=== PATIENT | male | born 1980 | race Caucasian/White ===

== ENCOUNTER 2018-03-03 12:43 | Outpatient (CLI) | payer BC ==
--- NOTE | 2018-03-03 16:20 | CT ---
LUMBAR SPINE CT WITHOUT CONTRAST: HISTORY: Lumbar radiculopathy. Fracture 1 year ago. Possible disk bulge. COMPARISON: None. TECHNIQUE: CT lumbar spine is performed without contrast administration. Multisequential, multiplanar imaging i s performed. FINDINGS: Lumbar spine vertebral body height is maintained. There is no vertebral body fracture. There is 3 m m of anterolisthesis of L5 upon S1. There are associated bilateral pars defects. Vacuum disk phenom enon at L5-S1. No retroperitoneal mass, lymphadenopathy, or hematoma. Visualized solid organs are unremarkable. T11-T12 and T12-L1: No significant central canal stenosis or foraminal narrowing. L1-L2: No significant central canal stenosis. Foramina are patent. L2-L3: No significant central canal stenosis. Neural foramina are patent. L3-L4: No significant central canal stenosis. Foramina are patent. L4-L5: Moderate loss of disk space height. There is a generalized disk bulge with a left subarticul ar component. There is presumed mass effect and partial obscuration of traversing left L5 nerve root . Overall, there is mild central canal stenosis. Mild right and mild to moderate left foraminal pennie rowing. L5-S1: Vacuum disk phenomenon. No high-grade central canal stenosis. Mild right and mild to modera te left foraminal narrowing. IMPRESSION: 1. Bilateral pars defects at L5 with associated grade I anterolisthesis of L5 upon S1. 2. Vacuum disk phenomenon at L5-S1. 3. Degenerative changes of the lumbar spine at L4-L5 with narrowing of the left subarticular zone. POS: [facility]
== END 2018-03-03 12:44 | disposition home or self-care (01) ==
LOC: TBSIIMAG 12:43
PROVIDERS: ATTEND Surgery
DX: M47.26 Other spondylosis with radiculopathy, lumbar region (principal); M43.17 Spondylolisthesis, lumbosacral region; M48.8X6 Other specified spondylopathies, lumbar region; M48.8X7 Other specified spondylopathies, lumbosacral region; M48.061 Spinal stenosis, lumbar region without neurogenic claudication
CPT/HCPCS: 72131